=== PATIENT | female | born 1955 | race Caucasian/White ===

== ENCOUNTER → 2018-10-11 | Outpatient (CLI) | payer OTHER ==
[~2018-10-11] MED LIST: ASPIRIN325 PO; CELEBREX 200 M200 M1 PO; CYMBALTA60 MG PO; FLEXERIL PO; HYDROXYCHLOROQ200 M1 PO; LISINOPRIL10 MG PO; NEURONTIN600 MG PO; NITROGLYCERIN0.4 MG SL; PEPCID COMPLET1 EACH PO
== END ==
LOC: M.CT 07:55
DX: Z13.6 Encounter for screening for cardiovascular disorders (principal)

== ENCOUNTER → 2019-06-11 | Outpatient (CLI) | payer MEDICARE, OTHER | LOC: M.ULTRA 15:19 | DX: R10.2 Pelvic and perineal pain (principal); Z90.710 Acquired absence of both cervix and uterus ==

== ENCOUNTER 2019-10-19 08:38 | Emergency (ER) | payer MEDICARE, OTHER ==
[~2019-10-19] VITALS: Ht 162.6 cm; Wt 60.8 kg
[2019-10-19] MEDS ORDERED: VOLTAREN GEL 1100 G1 TOP (08:50)
[2019-10-19] MEDS ORDERED: ANALPRAM HC 128.4 GM TOP (08:51)
[2019-10-19] MEDS ORDERED: ESTRACE42.5 GM VAG (08:51)
[2019-10-19 09:02] LABS: ABSOLUTE BASOPHILS 0.1 thou/uL (0.0-0.2); ABSOLUTE EOSINOPHILS 0.1 thou/uL (0.0-0.7); ABSOLUTE LYMPHOCYTES 1.2 thou/uL (0.8-5.3); ABSOLUTE MONOCYTES 0.4 thou/uL (0.0-1.2); ABSOLUTE NEUTROPHILS 2.9 thou/uL (1.6-8.1); BASOPHILS 1.3 %; EOSINOPHILS 2.5 %; HEMATOCRIT 42.7 % (37.0-47.0); HEMOGLOBIN 14.7 gm/dL (12.0-15.0); LYMPHOCYTES 26.2 %; MCH 29.9 pg (26.0-34.0); MCHC 34.6 g/dL (28.0-37.0); MCV 86.7 fL (80.0-100.0); MONOCYTES 8.8 %; MPV 7.6 fl. (7.2-11.1); NUCLEATED RBCS 0 /100WBC; PLATELET COUNT* 247 thou/uL (150-400); POLYS 61.2 %; RBC 4.92 mil/uL (4.20-5.00); RDW-CV 12.6 % (10.5-14.5); WBC 4.7 thou/uL (4.0-11.0)
[2019-10-19 09:14] LABS: CALCIUM 8.8 mg/dL (8.5-10.1); CREATININE 0.8 mg/dL (0.6-1.3); POTASSIUM 3.6 mmol/L (3.5-5.1)
[2019-10-19 09:17] LABS: PROTIME 10.5 Seconds (9.20-11.50)
[2019-10-19 09:39] LABS: ALBUMIN 3.9 g/dL (3.4-5.0); CK-MB MASS 0.6 ng/mL (<0.5-3.6); TOTAL BILIRUBIN 0.5 mg/dL (<0.1-1.0); TOTAL PROTEIN 7.2 g/dL (6.4-8.2)
[2019-10-19] MEDS ORDERED: NORCO 5-325 TA1 EAC1 PO (09:42)
[2019-10-19] MEDS ORDERED: ZOFRAN ODT4 MG DISSOLVE (10:04)
[2019-10-19 10:09] VITALS: BP 125/52
--- NOTE | 2019-10-19 15:15 | EKG ---
[place] [address] ELECTROCARDIOGRAM REPORT Name: JAREK DUFFY Room: 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 10/19/19 [phone] Jurgen Vallejo MD, [facility] /EPI
== END 2019-10-19 10:09 | disposition home or self-care (01) ==
LOC: M.ERS 08:38
PROVIDERS: Family Medicine
DX: R07.89 Other chest pain (principal); M79.7 Fibromyalgia; M06.9 Rheumatoid arthritis, unspecified; M32.9 Systemic lupus erythematosus, unspecified; N30.10 Interstitial cystitis (chronic) without hematuria; Z91.041 Radiographic dye allergy status; Z88.2 Allergy status to sulfonamides; Z88.1 Allergy status to other antibiotic agents; Z88.8 Allergy status to other drugs, medicaments and biological substances; Z90.49 Acquired absence of other specified parts of digestive tract; Z90.710 Acquired absence of both cervix and uterus

== ENCOUNTER → 2019-10-31 | Outpatient (CLI) | payer MEDICARE, OTHER ==
[~2019-10-31] MED LIST changes: +ANALPRAM HC 128.4 GM TOP; +ESTRACE42.5 GM VAG; +NORCO 5-325 TA1 EAC1 PO; +VOLTAREN GEL 1100 G1 TOP; +ZOFRAN ODT4 MG DISSOLVE
== END ==
LOC: M.MRI 10-24 09:17
DX: M50.11 Cervical disc disorder with radiculopathy, high cervical region (principal); M48.02 Spinal stenosis, cervical region; M25.78 Osteophyte, vertebrae

== ENCOUNTER → 2019-11-19 | Outpatient (CLI) | payer MEDICARE, OTHER ==
[~2019-11-19] MED LIST changes: +PLAQUENIL200 MG PO
== END ==
LOC: M.PC 02:35
PROVIDERS: ATTEND Physical Medicine & Rehabilitation
DX: M47.22 Other spondylosis with radiculopathy, cervical region (principal); M50.11 Cervical disc disorder with radiculopathy, high cervical region

== ENCOUNTER → 2019-11-21 | Outpatient (CLI) | payer MEDICARE, OTHER | END | disposition home or self-care (01) | LOC: M.PC 04:37 | PROVIDERS: ATTEND Physical Medicine & Rehabilitation | DX: M50.121 Cervical disc disorder at C4-C5 level with radiculopathy (principal); M48.02 Spinal stenosis, cervical region; M47.22 Other spondylosis with radiculopathy, cervical region; M06.9 Rheumatoid arthritis, unspecified; Z98.890 Other specified postprocedural states; Z79.899 Other long term (current) drug therapy; Z88.8 Allergy status to other drugs, medicaments and biological substances; Z91.041 Radiographic dye allergy status; Z88.2 Allergy status to sulfonamides ==

== ENCOUNTER → 2019-12-05 | Outpatient (CLI) | payer MEDICARE, OTHER | LOC: M.PC 03:31 | PROVIDERS: ATTEND Physical Medicine & Rehabilitation | DX: M50.11 Cervical disc disorder with radiculopathy, high cervical region (principal); M47.22 Other spondylosis with radiculopathy, cervical region ==

== ENCOUNTER → 2020-08-11 | Outpatient (CLI) | payer MEDICARE ==
[~2020-08-11] MED LIST changes: +D3 + K2 DOTS 11 EACH; +MULTI VITAMIN1 EACH; +PROBIOTIC1 EAC7; +VITAMIN C100 MG; +VP-VITE RX TAB1 EACH; +ZINC10 MG
== END ==
LOC: M.PC 08-04 08:20
PROVIDERS: ATTEND Physical Medicine & Rehabilitation
DX: M50.121 Cervical disc disorder at C4-C5 level with radiculopathy (principal); M47.22 Other spondylosis with radiculopathy, cervical region; M79.601 Pain in right arm

== ENCOUNTER → 2020-09-15 | Outpatient (CLI) | payer MEDICARE | END | disposition home or self-care (01) | LOC: M.PC 09:22 | PROVIDERS: ATTEND Physical Medicine & Rehabilitation | DX: M50.11 Cervical disc disorder with radiculopathy, high cervical region (principal); M48.02 Spinal stenosis, cervical region; M47.22 Other spondylosis with radiculopathy, cervical region; M06.9 Rheumatoid arthritis, unspecified; Z98.890 Other specified postprocedural states; Z79.899 Other long term (current) drug therapy; Z88.2 Allergy status to sulfonamides; Z88.8 Allergy status to other drugs, medicaments and biological substances ==

== ENCOUNTER → 2020-09-29 | Outpatient (CLI) | payer MEDICARE | LOC: M.PC 08:37 | PROVIDERS: ATTEND Physical Medicine & Rehabilitation | DX: M50.11 Cervical disc disorder with radiculopathy, high cervical region (principal); M48.02 Spinal stenosis, cervical region; M16.12 Unilateral primary osteoarthritis, left hip ==

== ENCOUNTER → 2021-04-06 | Outpatient (CLI) | payer MEDICARE ==
--- NOTE | 2021-04-06 18:29 | 2DMMODE ---
[place] [address] 2 D/M-MODE ECHOCARDIOGRAM Name: JAREK DUFFY Room: [facility]#: [id number] Admission: 04/06/21 Attend Phys: Jarek Wilson Discharge: Date of : 53 Date of Service: 04/06/21 1829 Report #: [id number] THIS REPORT FOR: cc: Jarek Wilson Linda J. DO Liston, Michael J. MD [facility] ~ APPROVED REPORT Study performed: 04/06/2021 08:15:48 EXAM: Comprehensive 2D, Doppler, and color-flow Echocardiogram Patient Location: Out-Patient BSA: 1.65 HR: 64 bpm BP: 112/68 mmHg Other Information Study Quality: Good Indications Dyspnea 2D Dimensions IVSd: 9.15 (7-11mm) LVOT Diam: 20.68 (18-24mm) LVDd: 37.62 mm PWd: 8.26 (7-11mm) Ascending Ao: 26.49 (22-36mm) LVDs: 24.99 (25-40mm) Aortic Root: 27.91 mm Volumes Left Atrial Volume (Systole) LA ESV Index: 12.60 mL/m2 Aortic Valve AoV Peak Adam.: 1.10 m/s AO Peak Gr.: 4.84 mmHg LVOT Max P.12 mmHg AO Mean Gr.: 2.98 mmHg LVOT Mean P.09 mmHg LVOT Max V: 0.73 m/s AO V2 VTI: 19.93 cm LVOT Mean V: 0.48 m/s MARIA INES (VTI): 2.71 cm2 LVOT V1 VTI: 16.10 cm Mitral Valve E/A Ratio: 0.96 [place] [address] 2 D/M-MODE ECHOCARDIOGRAM Name: JAREK DUFFY Room: [facility]#: [id number] Admission: 04/06/21 Attend Phys: Jarek Wilson Discharge: Date of : 53 Date of Service: 04/06/21 1829 Report #: [id number] MV Decel. Time: 149.18 ms MV E Max Adam.: 0.59 m/s MV PHT: 43.26 ms MVA (PHT): 5.09 cm2 TDI E/Lateral E': 5.90 E/Medial E': 5.90 Medial E' Adam.: 0.10 m/s Lateral E' Adam.: 0.10 m/s Pulmonary Valve PV Peak Adam.: 0.62 m/s PV Peak Gr.: 1.55 mmHg Tricuspid Valve RAP Estimate: 5.00 mmHg TR Peak Gr.: 15.11 mmHg RVSP: 20.11 mmHg PA Pressure: 20.11 mmHg Left Ventricle The left ventricle is normal size. There is normal LV segmental wall motion. There is normal left ventricular wall thickness. Left ventricular systolic function is normal. LVEF is 55-60%. Transmitral Doppler flow pattern suggests impaired LV relaxation. Right Ventricle The right ventricle is normal size. The right ventricular systolic function is normal. Atria The left atrium size is normal. The right atrium size is normal. Aortic Valve The aortic valve is normal in structure. No aortic regurgitation is present. There is no aortic valvular stenosis. Mitral Valve The mitral valve is normal in structure. There is no mitral valve regurgitation noted. No evidence of mitral valve stenosis. Tricuspid Valve The tricuspid valve is normal in structure. Trace to mild tricuspid regurgitation. Pulmonic Valve The pulmonary valve is normal in structure. There [place] [address] 2 D/M-MODE ECHOCARDIOGRAM Name: JAREK DUFFY Room: [facility]#: [id number] Admission: 04/06/21 Attend Phys: Jarek Wilson Discharge: Date of : 53 Date of Service: 04/06/21 1829 Report #: [id number] valvular regurgitation. Great Vessels The aortic root is normal in size. IVC is normal in size and collapses >50% with inspiration. Pericardium There is no pericardial effusion. <Conclusion> The left ventricle is normal size. There is normal left ventricular wall thickness. Left ventricular systolic function is normal. LVEF is 55-60%. Transmitral Doppler flow pattern suggests impaired LV relaxation. Trace to mild tricuspid regurgitation. IVC is normal in size and collapses >50% with inspiration. <ELECTRONICALLY SIGNED> By: Raymundo Mario MD, FACC 04/06/211828 28 28 Raymundo Mario MD, FACC /INF
== END ==
LOC: M.CRD 07:30
PROVIDERS: ATTEND Family Medicine
DX: I07.1 Rheumatic tricuspid insufficiency (principal); R09.89 Other specified symptoms and signs involving the circulatory and respiratory systems

== ENCOUNTER → 2021-04-27 | Outpatient (CLI) | payer MEDICARE ==
[2021-04-27 09:18] LABS: ABSOLUTE EOSINOPHILS 0.1 thou/uL (0.0-0.7); ABSOLUTE LYMPHOCYTES 0.8 thou/uL (0.8-5.3); ABSOLUTE MONOCYTES 0.3 thou/uL (0.0-1.2); BASOPHILS 1.2 %; EOSINOPHILS 2.7 %; HEMOGLOBIN 13.3 gm/dL (12.0-15.0); LYMPHOCYTES 25.8 %; MCH 28.5 pg (26.0-34.0); MCHC 33.3 g/dL (28.0-37.0); MCV 85.7 fL (80.0-100.0); MONOCYTES 7.9 %; MPV 7.3 fl. (7.2-11.1); NUCLEATED RBCS 0 /100WBC; PLATELET COUNT* 250 thou/uL (150-400); POLYS 62.4 %; RBC 4.67 mil/uL (4.20-5.00); RDW-CV 13.8 % (10.5-14.5); WBC 3.2 thou/uL (4.0-11.0)
[2021-04-27 09:33] LABS: ALBUMIN 3.9 g/dL (3.4-5.0); CALCIUM 8.7 mg/dL (8.5-10.1); CREATININE 0.8 mg/dL (0.6-1.3); POTASSIUM 3.7 mmol/L (3.5-5.1); TOTAL BILIRUBIN 0.5 mg/dL (<0.1-1.0)
== END ==
LOC: M.LAB 08:45
PROVIDERS: ATTEND Nurse Practitioner
DX: J84.10 Pulmonary fibrosis, unspecified (principal)